=== PATIENT | female | born 1935 | race African-American/Black ===

== ENCOUNTER 2019-02-02 19:47 | Emergency (ER) | payer SELFPAY ==
[2019-02-02] MEDS ORDERED: ATROPINE SULFATE 0.1 MG/ML 10 ML SYRINGE IVP ONE (19:48)
[2019-02-02] MEDS ORDERED: SODIUM BICARBONATE [ADULT] 8.4% 50 MEQ/50 ML SYRINGE IVP ONE (19:48)
[2019-02-02] MEDS ORDERED: EPINEPHrine 1:10,000 [1 MG/10 ML] SYRINGE IVP ONE (19:48)
[2019-02-02] MEDS ORDERED: SUCCINYLCHOLINE CHLORIDE 20 MG/ML 10 ML VIAL IM ONE (19:48)
[2019-02-02] MEDS ORDERED: ROCURONIUM BROMIDE 10 MG/ML 5 ML VIAL IV ONE (19:48)
[2019-02-02] MEDS ORDERED: CALCIUM CHLORIDE 100 MG/ML 10 ML SYRINGE IVP ONE (19:48)
== END 2019-02-02 23:55 | disposition expired ==
LOC: EMS 19:47
DX: I46.9 Cardiac arrest, cause unspecified (principal); J44.9 Chronic obstructive pulmonary disease, unspecified
CPT/HCPCS: 31500; 92950; 99285; J0330; J3490; J0171; J0461